=== PATIENT | female | born 1970 | race African-American/Black ===

== ENCOUNTER 2018-12-27 11:39 | Outpatient (CLI) | payer BC ==
--- NOTE | 2018-12-27 12:08 | RAD ---
EXAM: RIGHT KNEE FOUR VIEWS: History: Right knee pain without injury. FINDINGS: There are some degenerative changes involving all three compartments. No acute fracture or dislocatio n. IMPRESSION: Degenerative changes without acute fracture or dislocation. POS: [facility]
--- NOTE | 2018-12-27 12:08 | RAD ---
EXAM: RIGHT HIP TWO VIEWS: History: Right hip pain. FINDINGS/IMPRESSION: Degenerative changes right hip joint with some subchondral cystic changes and hypertrophic osteophyto sis without acute fracture or dislocation. POS: [facility]
--- NOTE | 2018-12-27 12:12 | RAD ---
LEFT KNEE 4 VIEWS: Date: 12/27/18 INDICATION: Knee pain. FINDINGS: Joint spaces are normal and symmetric. Minimal degenerative change. No joint effusion. No fracture or acute lesion. IMPRESSION: Unremarkable left knee. POS: [facility]
== END 2018-12-27 11:40 | disposition home or self-care (01) ==
LOC: BICRAD 11:39
PROVIDERS: ATTEND Family Medicine
DX: M25.551 Pain in right hip (principal); M25.561 Pain in right knee; M25.562 Pain in left knee; M16.11 Unilateral primary osteoarthritis, right hip; M25.751 Osteophyte, right hip; M17.11 Unilateral primary osteoarthritis, right knee